=== PATIENT | female | born 1935 | race Caucasian/White ===

== ENCOUNTER → 2016-11-20 | Outpatient (CLI) | payer MEDICARE, OTHER ==
--- NOTE | 2016-11-21 11:58 | EEG ---
DATE OF PROCEDURE: 11/20/2016 REFERRING PHYSICIAN: Dr. Jeniffer Ríos DIAGNOSIS: Seizure. 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 She is currently taking Aricept and a seizure medication but does not remember its name. This EEG was done to rule out epileptic potential. TECHNICAL DESCRIPTION This digital EEG was recorded by 21 scalp, ear and two EKG electrodes and was reviewed in bipolar and referential montages following reformatting in 10-20 international electrode placement system. INTERPRETATION: The patient was noted to be in awake and drowsy states during this EEG. Background rhythm consisted of 8-9 Hz alpha activity measuring 15-40 microvolts in amplitude on the right side. Left hemispheric amplitude was reduced to 10-20 microvolts and left hemisphere also revealed 6-7 Hz theta activity. Hyperventilation could not be performed. Stage I and II sleep was reviewed and showed attenuation and suppression in left cerebral hemisphere. Photic stimulation remained unremarkable. EKG revealed normal sinus rhythm. No clear epileptiform abnormalities were seen. No clinical or electrographic seizures were recorded. CONCLUSION: This EEG in awake, drowsy states, stage I and II sleep is abnormal due to left parietal temporal and occipital slowing and attenuation consistent with focal cortical structural or functional abnormality. No clear epileptiform abnormalities were seen. Clinical correlation is recommended.
== END | disposition home or self-care (01) ==
LOC: EDBD → M SLEEP 09:05
DX: R94.01 Abnormal electroencephalogram [EEG] (principal)

== ENCOUNTER → 2016-11-30 | Outpatient (CLI) | payer MEDICARE, OTHER ==
--- NOTE | 2016-11-30 12:35 | REP ---
MRI BRAIN WITHOUT AND WITH CONTRAST: HISTORY: Seizures. The sinuses and orbits are partially obscured by metal artifact. Areas of increased signal intensity on T2-weighted images are present in the periventricular and subcortical white matter and tracy. This represents small vessel ischemic disease. There is no intraparenchymal hemorrhage, infarct, mass or midline shift. The ventricular system and cortical sulci are dilated consistent with moderate volume loss. There is no extracerebral collection. The visualized sinuses are clear. IMPRESSION: 1. Small vessel ischemic disease. 2. Moderate volume loss. Signed by Jerry Kelley MD 11/30/2016 12:37 P
== END ==
LOC: M RAD 09:38
PROVIDERS: ATTEND Psychiatry & Neurology Neurology
DX: R56.9 Unspecified convulsions (principal)

== ENCOUNTER → 2017-09-02 | Outpatient (REF) | payer OTHER ==
[2017-09-03 12:03] LABS: BASO % 0.5 % (0.0-1.0); EOS # 0.1 10^3/uL (0.0-0.50); EOS % 2.1 % (0.0-3.0); IMMATURE GRANULOCYTE % 0.2 % (0-0); LYMPH # 1.7 10^3/uL (1.5-4.5); LYMPH % 30.1 % (24.0-44.0); MEAN CORPUSCULAR HEMOGLOBIN 30.8 pg (27.0-33.0); MONO # 0.4 10^3/uL (0.0-0.8); MONO % 7.8 % (0.0-5.0); NEUTROPHILS # 3.3 10^3/uL (1.8-7.7); NEUTROPHILS % 59.3 % (36.0-66.0); PLATELET COUNT, AUTOMATED 209 10^3/uL (150-450); RED CELL DISTRIBUTION WIDTH 12.9 % (11.5-14.5); WHITE BLOOD COUNT 5.6 10^3/uL (4.0-10.0)
[2017-09-03 12:21] LABS: ANION GAP 6 MEQ/L (8-16); BLOOD UREA NITROGEN 21 MG/DL (7-18); CALCIUM LEVEL 8.7 MG/DL (8.8-10.2); CARBON DIOXIDE LEVEL 31 MEQ/L (21-32); CHLORIDE LEVEL 106 MEQ/L (98-107); GLOMERULAR FILTRATION RATE > 60.0 (>32); GLUCOSE, FASTING 85 MG/DL (83-110); POTASSIUM SERUM 3.9 MEQ/L (3.5-5.1); SODIUM LEVEL 143 MEQ/L (136-145)
== END ==
LOC: M SFHCCLAY 14:26
PROVIDERS: ATTEND Nurse Practitioner Family
DX: R82.90 Unspecified abnormal findings in urine (principal)
CPT/HCPCS: 80048; 85025; G0463

== ENCOUNTER → 2017-09-03 | Outpatient (REF) | payer OTHER | LOC: M SFHCCLAY 17:32 | PROVIDERS: ATTEND Nurse Practitioner Family | DX: R82.90 Unspecified abnormal findings in urine (principal) ==